=== PATIENT | male | born 1975 | race American Indian/Alaskan Native ===

== ENCOUNTER 2017-09-12 23:17 | Emergency (ER) | payer SELFPAY ==
[2017-09-12] MEDS ORDERED: ASPIRIN PO ONE (23:29)
[2017-09-12] MEDS ORDERED: NACL 0.9% 1000 ML 1,000 ML IV ONE (23:29)
[2017-09-12] MEDS ORDERED: ATIVAN IV ONE (23:31)
--- NOTE | 2017-09-12 23:32 | Emergency Department Report ---
ED General Adult HPI - General Stated complaint: CHEST PAIN Time Seen by Provider: 09/12/17 23:25 Source: patient, EMS Limitations: No Limitations - History of Present Illness Initial comments: Cocaine chest pain admits to frequent cocaine binge states he snorts it today he developed chest pain the last 3 hours presents with elevated blood pressure heart rate with midsternal chest pain. Denies tearing pain denies back pain denies calf pain or swelling he has a little bit shortness of breath and palpitations no history of cardiac problems here for evaluation of cocaine- related chest pain -: Gradual, hour(s) Location: chest Radiation: non-radiation Quality: burning, sharp Improves with: none Worsens with: none Associated Symptoms: denies other symptoms, chest pain. denies: confusion, cough, diaphoresis, fever/chills, headaches, loss of appetite, malaise, nausea/ vomiting, rash, seizure, shortness of breath, syncope, weakness - Related Data Home Medications Medication Instructions Recorded Confirmed Last Taken No Known Home Medications [No 09/13/17 09/13/17 Unknown Reported Home Medications] Allergies Allergy/AdvReac Type Severity Reaction Status Date / Time No Known Allergies Allergy Verified 09/13/17 00:24 ED Review of Systems ROS: Stated complaint: CHEST PAIN Other details as noted in HPI Comment: All other systems reviewed and negative Constitutional: denies: diaphoresis, fever, malaise Eyes: denies: eye discharge, vision change ENT: denies: dental pain, hearing loss, epistaxis Respiratory: denies: shortness of breath, SOB with exertion, SOB at rest, stridor Cardiovascular: chest pain, palpitations. denies: orthopnea, edema, syncope, paroxysmal nocturnal dyspnea Gastrointestinal: denies: abdominal pain, nausea, vomiting, diarrhea, constipation, hematemesis, melena, hematochezia Genitourinary: denies: urgency, dysuria, frequency, hematuria, discharge, testicular pain Musculoskeletal: arthralgia, myalgia. denies: joint swelling Skin: denies: rash, lesions Neurological: denies: headache, weakness, numbness, paresthesias Psychiatric: anxiety. denies: auditory hallucinations, visual hallucinations, homicidal thoughts, suicidal thoughts ED Past Medical Hx - Medications Home Medications: Home Medications Medication Instructions Recorded Confirmed Last Taken Type No Known Home Medications [No 09/13/17 09/13/17 Unknown History Reported Home Medications] ED Physical Exam - General Limitations: No Limitations General appearance: alert, anxious - Head Head exam: Present: atraumatic, normocephalic - Eye Eye exam: Present: normal appearance, PERRL, EOMI - ENT ENT exam: Present: normal exam, normal orophraynx - Neck Neck exam: Present: normal inspection. Absent: tenderness, meningismus - Respiratory Respiratory exam: Present: normal lung sounds bilaterally. Absent: respiratory distress, wheezes, rales, rhonchi, stridor, chest wall tenderness, accessory muscle use, decreased breath sounds, prolonged expiratory - Cardiovascular Cardiovascular Exam: Present: normal rhythm, tachycardia, other (pulses equal bilaterally). Absent: systolic murmur, diastolic murmur, rubs, gallop - GI/Abdominal GI/Abdominal exam: Present: soft. Absent: distended, tenderness, guarding, rebound, rigid, mass, pulsatile mass - Extremities Exam Extremities exam: Present: normal inspection, normal capillary refill. Absent: tenderness, pedal edema, joint swelling, calf tenderness - Back Exam Back exam: Present: normal inspection. Absent: full ROM, tenderness, CVA tenderness (R), CVA tenderness (L), muscle spasm, paraspinal tenderness, vertebral tenderness - Neurological Exam Neurological exam: Present: alert, oriented X3, CN II-XII intact. Absent: motor sensory deficit - Psychiatric Psychiatric exam: Present: anxious - Skin Skin exam: Absent: cyanosis, diaphoretic, erythema, urticaria, vesicles, petechiae, pallor, abrasion, ecchymosis ED Course Vital Signs 09/12/17 09/12/17 09/12/17 23:24 23:31 23:48 Temperature 98.2 F Pulse Rate 100 H 102 H 95 H Respiratory 15 15 13 Rate Blood Pressure 143/101 143/101 O2 Sat by Pulse 99 99 100 Oximetry 09/13/17 00:00 Temperature Pulse Rate 89 Respiratory 17 Rate Blood Pressure 147/98 O2 Sat by Pulse 97 Oximetry - Reevaluation(s) Reevaluation #1: 09/13/17 01:31 She was placed on a director of cardiac rehabilitation and was given an aspirin EKG was obtained ED Medical Decision Making - Lab Data Result diagrams: 09/13/17 00:01 09/13/17 00:01 - EKG Data -: EKG Interpreted by Me EKG shows normal: sinus rhythm Rate: tachycardia - EKG Data Interpretation: nonspecific ST-T wave [place] 09/13/17 01:31 Subtle up sloping of the ST segment this EKG was sent to Dr. Fleming who did not feel that it represented STEMI - Radiology Data Radiology results: report reviewed - Medical Decision Making Discussed with patient we would admit the patient for further evaluation of chest pain. In consultation with Dr. Boo we did start aspirin nitroglycerin calcium channel lily patient is now refusing admission he does have capacity for decision making he is not intoxicated clinically he is ambulating and at baseline mental status per the family he is alert and oriented 3. He was informed of the risks of leaving including and disability acute [place] and signed out AMA witnessed by me and nurse Deanne he was informed to return immediately if nor alarming symptoms or desires further care Critical care attestation.: If time is entered above; I have spent that time in minutes in the direct care of this critically ill patient, excluding procedure time. ED Disposition Clinical Impression: Chest pain, Cocaine abuse Disposition: -07 LEFT AGAINST MED ADVICE Is pt being admited?: No Condition: Stable Instructions: Chest Pain (ED), Cocaine Abuse (ED) Additional Instructions: See the doctor listed return if new or alarming symptoms or call 911 gets seen by [employer] to help with. Cocaine use Referrals: PRIMARY CARE, [Primary Care Provider] - 3-5 Days SHAD CANO MD [Staff Physician] - 3-5 Days Time of Disposition: 01:34
--- NOTE | 2017-09-12 23:56 | XRay Report ---
FINAL REPORT PROCEDURE: XR CHEST 1V AP TECHNIQUE: Chest radiograph anteroposterior view. CPT 62663 HISTORY: Chest Pain COMPARISON: No prior studies are available for comparison. FINDINGS: Heart: Normal. Mediastinum/Vessels: Normal. Lungs/Pleural space: Normal. Bony thorax: No acute osseous abnormality. Life support devices: None. IMPRESSION: No acute cardiopulmonary abnormality.
[2017-09-13 00:18] LABS: Hematocrit 45.3 % (35.5-45.6); Hemoglobin 15.2 gm/dl (11.8-15.2); Mean Corpuscular HGB Conc 34 % (32-34); Mean Corpuscular Hemoglobin 28 pg (28-32); Mean Corpuscular Volume 83 fl (84-94); Platelet Count 269 K/mm3 (140-440); Red Blood Count 5.45 M/mm3 (3.65-5.03); Red Cell Distribution Width 12.6 % (13.2-15.2)
[2017-09-13] MEDS ORDERED: NORVASC PO ONE (00:24)
[2017-09-13 00:26] VITALS: BP 147/98
[2017-09-13 00:43] LABS: Bilirubin,Urine NEG (Negative); Blood,Urine SM (Negative); Color,Urine Yellow (Yellow); Mucus,Urine FEW /HPF; Protein,Urine <15 mg/dL mg/dL (Negative); Urobilinogen,Urine < 2.0 mg/dL (<2.0)
[2017-09-13] MEDS ORDERED: TRIDIL DRIP 50MG/250ML 50 MG/250 ML BOTTLE IV SCH (01:00)
[2017-09-13] MEDS ORDERED: CARDENE 50 MG in NACL 0.9% 250ML 230 ML IV SCH (01:00)
[2017-09-13 01:10] LABS: Amphetamine Screen,Urine PRESUMPTIVE NEGATIVE; Benzodiazepines Screen,Urine PRESUMPTIVE NEGATIVE; Cannabinoid Screen,Urine PRESUMPTIVE NEGATIVE; Methadone Screen,Urine PRESUMPTIVE NEGATIVE; Opiate Screen,Urine PRESUMPTIVE NEGATIVE
[2017-09-13 01:11] LABS: Alanine Aminotransferase 16 units/L (7-56); Albumin 4.6 g/dL (3.9-5); BUN/Creatinine Ratio 8; Blood Urea Nitrogen 11 mg/dL (9-20); Calcium 10.1 mg/dL (8.4-10.2); Hemolysis Index 28
[2017-09-13 01:30] LABS: Cocaine Screen,Urine PRESUMPTIVE POSITIVE
[2017-09-13 05:14] LABS: Basophils % (Manual) 0 % (0.0-1.8); Platelet Estimate Consistent w Auto; Total Cells Counted 100
== END 2017-09-13 01:20 | disposition left against medical advice (07) ==
LOC: ED 23:17
DX: R07.89 Other chest pain (principal); F14.10 Cocaine abuse, uncomplicated
CPT/HCPCS: 36415; 71045; 80053; 80307; 81001; 82550; 84484; 85007; 85025; 93005; 93010; 96361; 96374; 99285; J2060; J7030

== ENCOUNTER 2017-09-13 16:13 | Emergency (ER) | payer SELFPAY ==
[2017-09-13 16:27] VITALS: BP 137/94
[2017-09-13] MEDS ORDERED: ASPIRIN PO ONE (16:27)
== END 2017-09-14 | disposition left against medical advice (07) ==
LOC: ED 16:13
DX: R07.9 Chest pain, unspecified (principal); Z53.21 Procedure and treatment not carried out due to patient leaving prior to being seen by health care provider
CPT/HCPCS: 36415; 84484; 93005; 93010